=== PATIENT | female | born 1980 | race Caucasian/White ===

== ENCOUNTER 2018-09-27 13:10 | Emergency (ER) | payer OTHER, SELFPAY ==
[2018-09-27 13:21] VITALS: BP 137/78; PULSE 88; RESP 15; TEMP 36.7; O2SAT 98; BMI 39.3
--- NOTE | 2018-09-27 13:24 | ED.ABDPAIN ---
HPI - Abdominal Pain <JUAN Jeffrey - Last Filed: 09/27/18 21:47> General Chief Complaint: Abdominal Pain Stated Complaint: POSSIBLE APPENDIX ISSUES Time Seen by Provider: 09/27/18 13:24 Source: patient Mode of arrival: ambulatory Limitations: no limitations History of Present Illness HPI narrative: 38-year-old healthy female that is a nonsmoker here for complaint of right lower quadrant pain over the past couple of days. She denies any trauma to the area. No fevers no chills. She denies any urinary symptoms. Last bowel movement was earlier today. She states that her bowel movement was unremarkable. She denies any nausea or vomiting. Denies any stressors relievers of her discomfort. Pain has radiated to the right upper quadrant had a few times and then went back down to the lower quadrant. She has a history of hysterectomy and cholecystectomy. No other concerns or complaints at this time. Related Data Home Medications Medication Instructions Recorded Confirmed lorazepam [Ativan] #0 12/27/17 propranolol #0 12/27/17 sumatriptan succinate [Imitrex] #0 12/27/17 Allergies Allergy/AdvReac Type Severity Reaction Status Date / Time codeine Allergy Verified 09/27/18 13:21 Review of Systems <JUAN Jeffrey - Last Filed: 09/27/18 21:47> Constitutional Denies chills, Denies fever(s), Denies lethargy and Denies weakness Eyes Denies change in vision, Denies eye discharge, Denies irritation and Denies loss of vision ENT Ears, Nose, Mouth, and Throat: Denies change in voice, Denies neck pain and Denies sore throat Cardiovascular Denies chest pain, Denies irregular heart rhythm, Denies lightheadedness, Denies palpitations, Denies dyspnea, Denies dyspnea on exertion and Denies orthopnea Respiratory Denies cough, Denies dyspnea, Denies dyspnea on exertion and Denies wheezing Gastrointestinal Comments: Right lower quadrant pain Genitourinary Denies hematuria, Denies flank pain, Denies urinary incontinence and Denies urinary urgency Musculoskeletal Denies neck pain Integumentary/Breasts Denies pruritus, Denies erythema, Denies rash and Denies wounds Neurologic Denies confusion, Denies loss of vision and Denies weakness Psychiatric Denies anxiety, Denies confusion, Denies depression, Denies homicidal ideation and Denies suicidal ideation Endocrine Denies palpitations Allergic/Immunologic Denies wheezing Exam <JUAN Jeffrey - Last Filed: 09/27/18 21:47> Initial Vital Signs Initial Vital Signs: Vital Signs Temperature 98.1 F 09/27/18 13:21 Pulse Rate 88 09/27/18 13:21 Respiratory Rate 15 09/27/18 13:21 Blood Pressure 137/78 09/27/18 13:21 Pulse Oximetry 98 09/27/18 13:21 Const General: cooperative and well developed Nutritional Appearance: well nourished Orientation: alert, awake, oriented x3 and not confused HENPR Mouth: oral mucosae normal, oropharynx normal and moist mucous membranes Eyes Conjunctivae: conjunctivae normal Sclera: sclerae normal Pupils: PERRL EOM: EOM intact bilaterally Resp Effort & Inspection: normal respiratory effort, able to speak in complete sentences, no respiratory distress and no use of accessory muscles Auscultation: clear to auscultation bilaterally, no rales, no rhonchi and no wheezes Cardio Rate: regular rate Rhythm: regular rhythm Heart Sounds: no click, no gallops, no murmurs and no rubs GI Inspection: non-distended Palpation: soft, no hepatosplenomegaly, No guarding, No pulsatile mass and tender (Right lower quadrant) Auscultation: normal bowel sounds General: No CVA tenderness Skin General: no rashes or lesions noted, No jaundice and No petechiae Neuro General: alert, oriented x3, gait normal and no focal motor deficits Speech: speech normal <Alisha Bo DO - Last Filed: 09/30/18 07:18> Initial Vital Signs Initial Vital Signs: Vital Signs Temperature 98.1 F 09/27/18 13:21 Pulse Rate 88 09/27/18 13:21 Respiratory Rate 15 09/27/18 13:21 Blood Pressure 137/78 09/27/18 13:21 Pulse Oximetry 98 09/27/18 13:21 Course <JUAN Jeffrey - Last Filed: 09/27/18 21:47> Orders Ordered: Discontinued Medications Sodium Chloride (Normal Saline 0.9%) 1,000 mls @ 1,000 mls/hr IV BOLUS ONE Stop: 09/27/18 14:31 Last Infusion: 09/27/18 16:02 Dose: 0 mls/hr Admin: 09/27/18 14:52 Dose: 1,000 mls/hr Vital Signs - 8 hr 09/27/18 15:53 Pulse Rate 75 Blood Pressure [Left Arm] 125/70 Pulse Oximetry 99 <Alisha Bo DO - Last Filed: 09/30/18 07:18> Orders Ordered: Discontinued Medications Sodium Chloride (Normal Saline 0.9%) 1,000 mls @ 1,000 mls/hr IV BOLUS ONE Stop: 09/27/18 14:31 Last Infusion: 09/27/18 16:02 Dose: 0 mls/hr Admin: 09/27/18 14:52 Dose: 1,000 mls/hr Vital Signs - 8 hr 09/27/18 15:53 Pulse Rate 75 Blood Pressure [Left Arm] 125/70 Pulse Oximetry 99 MDM - Abdominal Pain <JUAN Jeffrey - Last Filed: 09/27/18 21:47> Lab Data Result diagrams: 09/27/18 13:45 09/27/18 13:45 Lab Results 09/27/18 09/27/18 Range/Units 13:45 13:45 WBC 5.9 (4.5-11.0) X10^3/uL RBC 4.88 (4.0-5.2) X10^6/uL Hgb 14.7 (12.0-16.0) g/dL Hct 42.2 (36-46) % MCV 86.5 (80-100) fL MCH 30.1 (26-34) PG MCHC 34.8 (30-36) % RDW 12.3 (11.6-14.8) % Plt Count 258 (150-400) X10^3/uL Neut % (Auto) 62.7 (50-75) % Lymph % (Auto) 29.2 (25-40) % Maury % (Auto) 6.6 (3-14) % Eos % (Auto) 0.8 L (2-4) % Baso % (Auto) 0.7 (0-2) % Neut # (Auto) 3700 (2668-0739) /uL Lymph # (Auto) 1700 (2828-1130) /uL Maury # (Auto) 400 (0-900) /uL Eos # (Auto) 0 (0-450) /uL Baso # (Auto) 0 (0-100) /uL Sodium 138 (137-145) mmol/L Potassium 4.1 (3.4-5.1) mmol/L Chloride 104 (98-107) mmol/L Carbon Dioxide 26 (22-32) mmol/L BUN 13 (7-17) mg/dL Creatinine 0.90 (0.52-1.04) mg/dL Estimated GFR > 60.0 (>60) mL/min BUN/Creatinine Ratio 14.4 (6-22) Glucose 96 (70-100) mg/dL Calcium 9.3 (8.4-10.2) mg/dL Total Bilirubin 0.4 (0.2-1.3) mg/dL AST 18 (14-36) IU/L ALT 24 (9-52) IU/L Alkaline Phosphatase 78 (38-126) U/L Total Protein 7.9 (6.3-8.2) g/dL Albumin 4.5 (3.5-5.0) g/dL Globulin 3.4 (1.7-4.1) g/dL Albumin/Globulin Ratio 1.3 (1.0-2.8) Lipase 54 (23-300) U/L Point of care testing: Urine Dip Bedside Urine Glucose Negative Bedside Urine Bilirubin - Negative Bedside Urine Ketone - Negative Urine Specific [place] 1.030 Bedside Urine Occult Blood - Negative Bedside Urine pH 5.5 Bedside Urine Protein - Negative Bedside Urine Urobilinogen - Negative Bedside Urine Nitrite - Negative Bedside Urine Leukocytes - Negative Esterase Imaging Data CT scan - abdomen: Radiologist's impression: Patient: Pattie Alejandro MR#: [id number] : 1980 Acct:[id number] Age/Sex: 38 / F Date of Service: 09/27/18 Loc: ED Accession Number: [id number] Procedure: CT abdomen pelvis w con Ordering Provider: Felice Tsang PROCEDURE: CT ABDOMEN PELVIS W CON INDICATIONS: Pain to right lower quadrant TECHNIQUE: After the administration of intravenous contrast, 5 mm thick sections acquired from the diaphragm to the symphysis. 5 mm coronal and sagittal reformats were acquired. For radiation dose reduction, the following was used: automated exposure control, adjustment of mA and/or kV according to patient size. COMPARISON: None. FINDINGS: Image quality: Excellent. ABDOMEN: Lung bases: Lung bases are clear. Heart size is normal. Solid organs: Liver is normal in size and enhancement. Gallbladder is surgically absent. Biliary system is non dilated. Pancreas enhances normally. Spleen is normal in size and enhancement. No adrenal nodules. Kidneys demonstrate normal size and enhancement, without hydronephrosis. 7 mm nonobstructing stone in the lower pole of the right kidney. Peritoneum and bowel: Bowel loops demonstrate normal wall thickness and caliber. No free fluid or air. The appendix is normal. Nodes and vessels: No retroperitoneal or mesenteric adenopathy by size criteria. Aorta and inferior vena cava are normal in size. Miscellaneous: Small fat containing umbilical hernia. PELVIS: Genitourinary: Bladder wall thickness is normal. Uterus is absent. Miscellaneous: No inguinal hernias or adenopathy. Bones: No suspicious bony lesions. No vertebral body compression fractures. IMPRESSION: 1. No acute disease process. 2. The appendix is normal. 3. No dilated loops of bowel. 4. No free fluid or air. 5. 7 mm nonobstructing right renal stone. 6. Postsurgical changes. Dictated by: Alissa Rendon MD, PhD on 09/27/2018 at 14:38 Approved by: Alissa Rendon MD, PhD on 09/27/2018 at 14:45 pelvic us: Radiologist's impression: ANGIE Hankins [id number] Ultrasound Report Signed Patient: Pattie Alejandro MR#: [id number] : 1980 Acct:[id number] Age/Sex: 38 / F Date of Service: 09/27/18 Loc: ED Accession Number: [id number] Procedure: US pelvic complete Ordering Provider: Felice Tsang PROCEDURE: US PELVIC COMPLETE INDICATIONS: Right lower quadrant pain TECHNIQUE: Real-time scanning was performed of the pelvic organs, with image documentation. Additional endovaginal scanning was necessary due to incomplete visualization of the adnexal and endometrial structures by transabdominal scanning. COMPARISON: [facility], CT, CT ABDOMEN PELVIS W CON, 09/27/2018, 14:10. FINDINGS: Transabdominal scanning: Limited scanning through the kidneys shows no hydronephrosis. No pathologic free abdominal or pelvic fluid. Endovaginal scanning: Uterus: Uterus is surgically absent.. Ovaries: Ovaries are not visualized and cannot be evaluated. No sonographic abnormalities identified in the expected region of the adnexa. IMPRESSION: 1. Uterus is surgically absent. 2. Ovaries are not identified and cannot be evaluated. No gross sonographic abnormalities identified in the expected region of the adnexa. Dictated by: Alissa Rendon MD, PhD on 09/27/2018 at 15:59 Approved by: Alissa Rendon MD, PhD on 09/27/2018 at 16:02 [facility] Narrative Medical decision making narrative: CBC and Chem panel were obtained were unremarkable. Lipase was negative. Urinalysis was negative for urinary tract infection. CT of the abdomen was obtained and was negative for any acute findings. There is a nonobstructing stone to the right kidney area. Patient was informed of this. Pelvic ultrasound was obtained and was negative for any acute findings. No emergent causes of her abdominal pain is found. Differential between viral illness or stomach wall pain [id number] Tylenol or Motrin as needed for any discomfort. Follow up with primary care provider. Return emergency room for any worsening symptoms. <Alisha Bo, DO - Last Filed: 09/30/18 07:18> Lab Data Lab Results 09/27/18 09/27/18 Range/Units 13:45 13:45 WBC 5.9 (4.5-11.0) X10^3/uL RBC 4.88 (4.0-5.2) X10^6/uL Hgb 14.7 (12.0-16.0) g/dL Hct 42.2 (36-46) % MCV 86.5 (80-100) fL MCH 30.1 (26-34) PG MCHC 34.8 (30-36) % RDW 12.3 (11.6-14.8) % Plt Count 258 (150-400) X10^3/uL Neut % (Auto) 62.7 (50-75) % Lymph % (Auto) 29.2 (25-40) % Maury % (Auto) 6.6 (3-14) % Eos % (Auto) 0.8 L (2-4) % Baso % (Auto) 0.7 (0-2) % Neut # (Auto) 3700 (2819-7233) /uL Lymph # (Auto) 1700 (0953[address]2029) /uL Maury # (Auto) 400 (0-900) /uL Eos # (Auto) 0 (0-450) /uL Baso # (Auto) 0 (0-100) /uL Sodium 138 (137-145) mmol/L Potassium 4.1 (3.4-5.1) mmol/L Chloride 104 (98-107) mmol/L Carbon Dioxide 26 (22-32) mmol/L BUN 13 (7-17) mg/dL Creatinine 0.90 (0.52-1.04) mg/dL Estimated GFR > 60.0 (>60) mL/min BUN/Creatinine Ratio 14.4 (6-22) Glucose 96 (70-100) mg/dL Calcium 9.3 (8.4-10.2) mg/dL Total Bilirubin 0.4 (0.2-1.3) mg/dL AST 18 (14-36) IU/L ALT 24 (9-52) IU/L Alkaline Phosphatase 78 (38-126) U/L Total Protein 7.9 (6.3-8.2) g/dL Albumin 4.5 (3.5-5.0) g/dL Globulin 3.4 (1.7-4.1) g/dL Albumin/Globulin Ratio 1.3 (1.0-2.8) Lipase 54 (23-300) U/L Point of care testing: Urine Dip Bedside Urine Glucose Negative Bedside Urine Bilirubin - Negative Bedside Urine Ketone - Negative Urine Specific [place] 1.030 Bedside Urine Occult Blood - Negative Bedside Urine pH 5.5 Bedside Urine Protein - Negative Bedside Urine Urobilinogen - Negative Bedside Urine Nitrite - Negative Bedside Urine Leukocytes - Negative Esterase Discharge Plan Departure Patient Disposition: Home Clinical Impression: Abdominal pain Discharge Date/Time: 09/27/18 16:26 Interventions: ED Discharge Assessment Last Done: 09/27/18 16:24 Instructions: DI for Abdominal Pain-Adult Activity Restrictions/Additional Instructions: Laboratory results and imaging today were unremarkable. No emergent causes of abdominal pain is found today. Abdominal pain may be due to abdominal wall pain or a viral illness. Use [id number] Tylenol or Motrin as needed for any discomfort. Plenty of fluids. Follow up with her primary care provider. Return emergency room for any worsening symptoms. Prescriptions: No Action propranolol 20 MG tablet Qty: 0 RF: 0 sumatriptan succinate [Imitrex] 50 MG tablet Qty: 0 RF: 0 lorazepam [Ativan] 0.5 MG tablet Qty: 0 RF: 0 Referrals: Colleen Ledesma ARNP [Primary Care Provider] - <Alisha Bo DO - Last Filed: 09/30/18 07:18> Cosign ED Attending Chanceature Attestation: I was immediately available in the department for consultation. Documentation has been reviewed. I agree with assessment and plan.
--- NOTE | 2018-09-27 13:33 | DI.CT.S_ITS ---
PROCEDURE: CT ABDOMEN PELVIS W CON INDICATIONS: Pain to right lower quadrant TECHNIQUE: After the administration of intravenous contrast, 5 mm thick sections acquired from the diaphragm to the symphysis. 5 mm coronal and sagittal reformats were acquired. For radiation dose reduction, the following was used: automated exposure control, adjustment of mA and/or kV according to patient size. COMPARISON: None. FINDINGS: Image quality: Excellent. ABDOMEN: Lung bases: Lung bases are clear. Heart size is normal. Solid organs: Liver is normal in size and enhancement. Gallbladder is surgically absent. Biliary system is non dilated. Pancreas enhances normally. Spleen is normal in size and enhancement. No adrenal nodules. Kidneys demonstrate normal size and enhancement, without hydronephrosis. 7 mm nonobstructing stone in the lower pole of the right kidney. Peritoneum and bowel: Bowel loops demonstrate normal wall thickness and caliber. No free fluid or air. The appendix is normal. Nodes and vessels: No retroperitoneal or mesenteric adenopathy by size criteria. Aorta and inferior vena cava are normal in size. Miscellaneous: Small fat containing umbilical hernia. PELVIS: Genitourinary: Bladder wall thickness is normal. Uterus is absent. Miscellaneous: No inguinal hernias or adenopathy. Bones: No suspicious bony lesions. No vertebral body compression fractures. IMPRESSION: 1. No acute disease process. 2. The appendix is normal. 3. No dilated loops of bowel. 4. No free fluid or air. 5. 7 mm nonobstructing right renal stone. 6. Postsurgical changes. Dictated by: Alissa Rendon MD, PhD on 09/27/2018 at 14:38 Approved by: Alissa Rendon MD, PhD on 09/27/2018 at 14:45
[2018-09-27 13:55] LABS: Add Manual Diff / Slide Review NO; Basophils Absolute Auto 0 /uL (0-100); Basophils Percent Auto 0.7 % (0-2); Eosinophils Absolute Auto 0 /uL (0-450); Eosinophils Percent Auto 0.8 % (2-4); Hematocrit 42.2 % (36-46); Hemoglobin 14.7 g/dL (12.0-16.0); Lymphocytes Absolute Auto 1700 /uL (1100-4500); Lymphocytes Percent Auto 29.2 % (25-40); Mean Corpuscular HGB Conc 34.8 % (30-36); Mean Corpuscular Hemoglobin 30.1 PG (26-34); Mean Corpuscular Volume 86.5 fL (80-100); Monocytes Absolute Auto 400 /uL (0-900); Monocytes Percent Auto 6.6 % (3-14); Neutrophils Absolute Auto 3700 /uL (1500-7000); Neutrophils Percent Auto 62.7 % (50-75); Platelet Count 258 X10^3/uL (150-400); Red Blood Cell Count 4.88 X10^6/uL (4.0-5.2); Red Cell Distribution Width 12.3 % (11.6-14.8); White Blood Cell Count 5.9 X10^3/uL (4.5-11.0)
[2018-09-27 14:05] LABS: Alanine Aminotransferase 24 IU/L (9-52); Albumin 4.5 g/dL (3.5-5.0); Albumin Globulin Ratio 1.3 (1.0-2.8); Alkaline Phosphatase 78 U/L (38-126); Aspartate Aminotransferase 18 IU/L (14-36); BUN Creatinine Ratio 14.4 (6-22); Bilirubin Total 0.4 mg/dL (0.2-1.3); Blood Urea Nitrogen 13 mg/dL (7-17); Calcium 9.3 mg/dL (8.4-10.2); Carbon Dioxide 26 mmol/L (22-32); Chloride 104 mmol/L (98-107); Estimated Glomerular Filt Rate > 60.0 mL/min (>60); Globulin 3.4 g/dL (1.7-4.1); Glucose 96 mg/dL (70-100); HEMOLYSIS < 15 (0-50); Lipase 54 U/L (23-300); Potassium 4.1 mmol/L (3.4-5.1); Sodium 138 mmol/L (137-145); Total Protein 7.9 g/dL (6.3-8.2)
[2018-09-27] MEDS: SODIUM CHLORIDE 0.9% 1,000 ML 1000 ML IV (14:52)
--- NOTE | 2018-09-27 15:03 | DI.US.S_ITS ---
PROCEDURE: US PELVIC COMPLETE INDICATIONS: Right lower quadrant pain TECHNIQUE: Real-time scanning was performed of the pelvic organs, with image documentation. Additional endovaginal scanning was necessary due to incomplete visualization of the adnexal and endometrial structures by transabdominal scanning. COMPARISON: [facility], CT, CT ABDOMEN PELVIS W CON, 09/27/2018, 14:10. FINDINGS: Transabdominal scanning: Limited scanning through the kidneys shows no hydronephrosis. No pathologic free abdominal or pelvic fluid. Endovaginal scanning: Uterus: Uterus is surgically absent.. Ovaries: Ovaries are not visualized and cannot be evaluated. No sonographic abnormalities identified in the expected region of the adnexa. IMPRESSION: 1. Uterus is surgically absent. 2. Ovaries are not identified and cannot be evaluated. No gross sonographic abnormalities identified in the expected region of the adnexa. Dictated by: Alissa Rendon MD, PhD on 09/27/2018 at 15:59 Approved by: Alissa Rendon MD, PhD on 09/27/2018 at 16:02
[2018-09-27 15:53] VITALS: BP 125/70; PULSE 75; O2SAT 99
--- NOTE | 2018-09-27 16:10 | ED_ITS ---
HPI - Abdominal Pain <JUAN Jeffrey - Last Filed: 09/27/18 21:47> General Chief Complaint: Abdominal Pain Stated Complaint: POSSIBLE APPENDIX ISSUES Time Seen by Provider: 09/27/18 13:24 Source: patient Mode of arrival: ambulatory Limitations: no limitations History of Present Illness HPI narrative: 38-year-old healthy female that is a nonsmoker here for complaint of right lower quadrant pain over the past couple of days. She denies any trauma to the area. No fevers no chills. She denies any urinary symptoms. Last bowel movement was earlier today. She states that her bowel movement was unremarkable. She denies any nausea or vomiting. Denies any stressors relievers of her discomfort. Pain has radiated to the right upper quadrant had a few times and then went back down to the lower quadrant. She has a history of hysterectomy and cholecystectomy. No other concerns or complaints at this time. Related Data Home Medications Medication Instructions Recorded Confirmed lorazepam [Ativan] #0 12/27/17 propranolol #0 12/27/17 sumatriptan succinate [Imitrex] #0 12/27/17 Allergies Allergy/AdvReac Type Severity Reaction Status Date / Time codeine Allergy Verified 09/27/18 13:21 Review of Systems <JUAN Jeffrey - Last Filed: 09/27/18 21:47> Constitutional Denies chills, Denies fever(s), Denies lethargy and Denies weakness Eyes Denies change in vision, Denies eye discharge, Denies irritation and Denies loss of vision ENT Ears, Nose, Mouth, and Throat: Denies change in voice, Denies neck pain and Denies sore throat Cardiovascular Denies chest pain, Denies irregular heart rhythm, Denies lightheadedness, Denies palpitations, Denies dyspnea, Denies dyspnea on exertion and Denies orthopnea Respiratory Denies cough, Denies dyspnea, Denies dyspnea on exertion and Denies wheezing Gastrointestinal Comments: Right lower quadrant pain Genitourinary Denies hematuria, Denies flank pain, Denies urinary incontinence and Denies urinary urgency Musculoskeletal Denies neck pain Integumentary/Breasts Denies pruritus, Denies erythema, Denies rash and Denies wounds Neurologic Denies confusion, Denies loss of vision and Denies weakness Psychiatric Denies anxiety, Denies confusion, Denies depression, Denies homicidal ideation and Denies suicidal ideation Endocrine Denies palpitations Allergic/Immunologic Denies wheezing Exam <JUAN Jeffrey - Last Filed: 09/27/18 21:47> Initial Vital Signs Initial Vital Signs: Vital Signs Temperature 98.1 F 09/27/18 13:21 Pulse Rate 88 09/27/18 13:21 Respiratory Rate 15 09/27/18 13:21 Blood Pressure 137/78 09/27/18 13:21 Pulse Oximetry 98 09/27/18 13:21 Const General: cooperative and well developed Nutritional Appearance: well nourished Orientation: alert, awake, oriented x3 and not confused HENMD Mouth: oral mucosae normal, oropharynx normal and moist mucous membranes Eyes Conjunctivae: conjunctivae normal Sclera: sclerae normal Pupils: PERRL EOM: EOM intact bilaterally Resp Effort & Inspection: normal respiratory effort, able to speak in complete sentences, no respiratory distress and no use of accessory muscles Auscultation: clear to auscultation bilaterally, no rales, no rhonchi and no wheezes Cardio Rate: regular rate Rhythm: regular rhythm Heart Sounds: no click, no gallops, no murmurs and no rubs GI Inspection: non-distended Palpation: soft, no hepatosplenomegaly, No guarding, No pulsatile mass and tender (Right lower quadrant) Auscultation: normal bowel sounds General: No CVA tenderness Skin General: no rashes or lesions noted, No jaundice and No petechiae Neuro General: alert, oriented x3, gait normal and no focal motor deficits Speech: speech normal <Alisha Bo DO - Last Filed: 09/30/18 07:18> Initial Vital Signs Initial Vital Signs: Vital Signs Temperature 98.1 F 09/27/18 13:21 Pulse Rate 88 09/27/18 13:21 Respiratory Rate 15 09/27/18 13:21 Blood Pressure 137/78 09/27/18 13:21 Pulse Oximetry 98 09/27/18 13:21 Course <JUAN Jeffrey - Last Filed: 09/27/18 21:47> Orders Ordered: Discontinued Medications Sodium Chloride (Normal Saline 0.9%) 1,000 mls @ 1,000 mls/hr IV BOLUS ONE Stop: 09/27/18 14:31 Last Infusion: 09/27/18 16:02 Dose: 0 mls/hr Admin: 09/27/18 14:52 Dose: 1,000 mls/hr Vital Signs - 8 hr 09/27/18 15:53 Pulse Rate 75 Blood Pressure [Left Arm] 125/70 Pulse Oximetry 99 <Alisha Bo DO - Last Filed: 09/30/18 07:18> Orders Ordered: Discontinued Medications Sodium Chloride (Normal Saline 0.9%) 1,000 mls @ 1,000 mls/hr IV BOLUS ONE Stop: 09/27/18 14:31 Last Infusion: 09/27/18 16:02 Dose: 0 mls/hr Admin: 09/27/18 14:52 Dose: 1,000 mls/hr Vital Signs - 8 hr 09/27/18 15:53 Pulse Rate 75 Blood Pressure [Left Arm] 125/70 Pulse Oximetry 99 MDM - Abdominal Pain <JUAN Jeffrey - Last Filed: 09/27/18 21:47> Lab Data Result diagrams: 09/27/18 13:45 09/27/18 13:45 Lab Results 09/27/18 09/27/18 Range/Units 13:45 13:45 WBC 5.9 (4.5-11.0) X10^3/uL RBC 4.88 (4.0-5.2) X10^6/uL Hgb 14.7 (12.0-16.0) g/dL Hct 42.2 (36-46) % MCV 86.5 (80-100) fL MCH 30.1 (26-34) PG MCHC 34.8 (30-36) % RDW 12.3 (11.6-14.8) % Plt Count 258 (150-400) X10^3/uL Neut % (Auto) 62.7 (50-75) % Lymph % (Auto) 29.2 (25-40) % [place] % (Auto) 6.6 (3-14) % Eos % (Auto) 0.8 L (2-4) % Baso % (Auto) 0.7 (0-2) % Neut # (Auto) 3700 (0902-4376) /uL Lymph # (Auto) 1700 (7877-4544) /uL [place] # (Auto) 400 (0-900) /uL Eos # (Auto) 0 (0-450) /uL Baso # (Auto) 0 (0-100) /uL Sodium 138 (137-145) mmol/L Potassium 4.1 (3.4-5.1) mmol/L Chloride 104 (98-107) mmol/L Carbon Dioxide 26 (22-32) mmol/L BUN 13 (7-17) mg/dL Creatinine 0.90 (0.52-1.04) mg/dL Estimated GFR > 60.0 (>60) mL/min BUN/Creatinine Ratio 14.4 (6-22) Glucose 96 (70-100) mg/dL Calcium 9.3 (8.4-10.2) mg/dL Total Bilirubin 0.4 (0.2-1.3) mg/dL AST 18 (14-36) IU/L ALT 24 (9-52) IU/L Alkaline Phosphatase 78 (38-126) U/L Total Protein 7.9 (6.3-8.2) g/dL Albumin 4.5 (3.5-5.0) g/dL Globulin 3.4 (1.7-4.1) g/dL Albumin/Globulin Ratio 1.3 (1.0-2.8) Lipase 54 (23-300) U/L Point of care testing: Urine Dip Bedside Urine Glucose Negative Bedside Urine Bilirubin - Negative Bedside Urine Ketone - Negative Urine Specific [place] 1.030 Bedside Urine Occult Blood - Negative Bedside Urine pH 5.5 Bedside Urine Protein - Negative Bedside Urine Urobilinogen - Negative Bedside Urine Nitrite - Negative Bedside Urine Leukocytes - Negative Esterase Imaging Data CT scan - abdomen: Radiologist's impression: Patient: Pattie Alejandro MR#: [id number] : 1980 Acct:[id number] Age/Sex: 38 / F Date of Service: 09/27/18 Loc: ED Accession Number: [id number] Procedure: CT abdomen pelvis w con Ordering Provider: Felice Tsang PROCEDURE: CT ABDOMEN PELVIS W CON INDICATIONS: Pain to right lower quadrant TECHNIQUE: After the administration of intravenous contrast, 5 mm thick sections acquired from the diaphragm to the symphysis. 5 mm coronal and sagittal reformats were acquired. For radiation dose reduction, the following was used: automated exposure control, adjustment of mA and/or kV according to patient size. COMPARISON: None. FINDINGS: Image quality: Excellent. ABDOMEN: Lung bases: Lung bases are clear. Heart size is normal. Solid organs: Liver is normal in size and enhancement. Gallbladder is surgically absent. Biliary system is non dilated. Pancreas enhances normally. Spleen is normal in size and enhancement. No adrenal nodules. Kidneys demonstrate normal size and enhancement, without hydronephrosis. 7 mm nonobstructing stone in the lower pole of the right kidney. Peritoneum and bowel: Bowel loops demonstrate normal wall thickness and caliber. No free fluid or air. The appendix is normal. Nodes and vessels: No retroperitoneal or mesenteric adenopathy by size criteria. Aorta and inferior vena cava are normal in size. Miscellaneous: Small fat containing umbilical hernia. PELVIS: Genitourinary: Bladder wall thickness is normal. Uterus is absent. Miscellaneous: No inguinal hernias or adenopathy. Bones: No suspicious bony lesions. No vertebral body compression fractures. IMPRESSION: 1. No acute disease process. 2. The appendix is normal. 3. No dilated loops of bowel. 4. No free fluid or air. 5. 7 mm nonobstructing right renal stone. 6. Postsurgical changes. Dictated by: Alissa Rendon MD, PhD on 09/27/2018 at 14:38 Approved by: Alissa Rendon MD, PhD on 09/27/2018 at 14:45 pelvic us: Radiologist's impression: ANGIE Hankins [id number] Ultrasound Report Signed Patient: Pattie Alejandro MR#: [id number] : 1980 Acct:[id number] Age/Sex: 38 / F Date of Service: 09/27/18 Loc: ED Accession Number: [id number] Procedure: US pelvic complete Ordering Provider: Felice Tsang PROCEDURE: US PELVIC COMPLETE INDICATIONS: Right lower quadrant pain TECHNIQUE: Real-time scanning was performed of the pelvic organs, with image documentation. Additional endovaginal scanning was necessary due to incomplete visualization of the adnexal and endometrial structures by transabdominal scanning. COMPARISON: [facility], CT, CT ABDOMEN PELVIS W CON, 09/27/2018, 14:10. FINDINGS: Transabdominal scanning: Limited scanning through the kidneys shows no hydronephrosis. No pathologic free abdominal or pelvic fluid. Endovaginal scanning: Uterus: Uterus is surgically absent.. Ovaries: Ovaries are not visualized and cannot be evaluated. No sonographic abnormalities identified in the expected region of the adnexa. IMPRESSION: 1. Uterus is surgically absent. 2. Ovaries are not identified and cannot be evaluated. No gross sonographic abnormalities identified in the expected region of the adnexa. Dictated by: Alissa Rendon MD, PhD on 09/27/2018 at 15:59 Approved by: Alissa Rendon MD, PhD on 09/27/2018 at 16:02 [facility] Narrative Medical decision making narrative: CBC and Chem panel were obtained were unremarkable. Lipase was negative. Urinalysis was negative for urinary tract infection. CT of the abdomen was obtained and was negative for any acute findings. There is a nonobstructing stone to the right kidney area. Patient was informed of this. Pelvic ultrasound was obtained and was negative for any acute findings. No emergent causes of her abdominal pain is found. Differential between viral illness or stomach wall pain [id number] Tylenol or Motrin as needed for any discomfort. Follow up with primary care provider. Return emergency room for any worsening symptoms. <Alisha Bo, DO - Last Filed: 09/30/18 07:18> Lab Data Lab Results 09/27/18 09/27/18 Range/Units 13:45 13:45 WBC 5.9 (4.5-11.0) X10^3/uL RBC 4.88 (4.0-5.2) X10^6/uL Hgb 14.7 (12.0-16.0) g/dL Hct 42.2 (36-46) % MCV 86.5 (80-100) fL MCH 30.1 (26-34) PG MCHC 34.8 (30-36) % RDW 12.3 (11.6-14.8) % Plt Count 258 (150-400) X10^3/uL Neut % (Auto) 62.7 (50-75) % Lymph % (Auto) 29.2 (25-40) % [place] % (Auto) 6.6 (3-14) % Eos % (Auto) 0.8 L (2-4) % Baso % (Auto) 0.7 (0-2) % Neut # (Auto) 3700 (8649-2408) /uL Lymph # (Auto) 1700 (7027-2357) /uL [place] # (Auto) 400 (0-900) /uL Eos # (Auto) 0 (0-450) /uL Baso # (Auto) 0 (0-100) /uL Sodium 138 (137-145) mmol/L Potassium 4.1 (3.4-5.1) mmol/L Chloride 104 (98-107) mmol/L Carbon Dioxide 26 (22-32) mmol/L BUN 13 (7-17) mg/dL Creatinine 0.90 (0.52-1.04) mg/dL Estimated GFR > 60.0 (>60) mL/min BUN/Creatinine Ratio 14.4 (6-22) Glucose 96 (70-100) mg/dL Calcium 9.3 (8.4-10.2) mg/dL Total Bilirubin 0.4 (0.2-1.3) mg/dL AST 18 (14-36) IU/L ALT 24 (9-52) IU/L Alkaline Phosphatase 78 (38-126) U/L Total Protein 7.9 (6.3-8.2) g/dL Albumin 4.5 (3.5-5.0) g/dL Globulin 3.4 (1.7-4.1) g/dL Albumin/Globulin Ratio 1.3 (1.0-2.8) Lipase 54 (23-300) U/L Point of care testing: Urine Dip Bedside Urine Glucose Negative Bedside Urine Bilirubin - Negative Bedside Urine Ketone - Negative Urine Specific [place] 1.030 Bedside Urine Occult Blood - Negative Bedside Urine pH 5.5 Bedside Urine Protein - Negative Bedside Urine Urobilinogen - Negative Bedside Urine Nitrite - Negative Bedside Urine Leukocytes - Negative Esterase Discharge Plan Departure Patient Disposition: Home Clinical Impression: Abdominal pain Discharge Date/Time: 09/27/18 16:26 Interventions: ED Discharge Assessment Last Done: 09/27/18 16:24 Instructions: DI for Abdominal Pain-Adult Activity Restrictions/Additional Instructions: Laboratory results and imaging today were unremarkable. No emergent causes of abdominal pain is found today. Abdominal pain may be due to abdominal wall pain or a viral illness. Use [id number] Tylenol or Motrin as needed for any discomfort. Plenty of fluids. Follow up with her primary care provider. Return emergency room for any worsening symptoms. Prescriptions: No Action propranolol 20 MG tablet Qty: 0 RF: 0 sumatriptan succinate [Imitrex] 50 MG tablet Qty: 0 RF: 0 lorazepam [Ativan] 0.5 MG tablet Qty: 0 RF: 0 Referrals: Colleen Ledesma ARNP [Primary Care Provider] - <Alisha Bo DO - Last Filed: 09/30/18 07:18> Cosign ED Attending Chanceature Attestation: I was immediately available in the department for consultation. Documentation has been reviewed. I agree with assessment and plan.
== END 2018-09-27 16:26 | disposition home or self-care (01) ==
PROVIDERS: Emergency Provider Nurse Practitioner Family; PCP Nurse Practitioner Family
DX: R10.9 Unspecified abdominal pain (principal)
CPT/HCPCS: 36591; 74177; 76856; 80053; 81003; 83690; 85025; 96360; 99283; 99285; Q9967

== ENCOUNTER → 2019-02-26 15:42 | Outpatient (CLI) | payer OTHER, SELFPAY ==
[2019-02-26 16:36] LABS: Alanine Aminotransferase 11 IU/L (9-52); Albumin 4.1 g/dL (3.5-5.0); Albumin Globulin Ratio 1.4 (1.0-2.8); Alkaline Phosphatase 81 U/L (38-126); Aspartate Aminotransferase 19 IU/L (14-36); Bilirubin Total 0.2 mg/dL (0.2-1.3); Blood Urea Nitrogen 16 mg/dL (7-17); Calcium 9.4 mg/dL (8.4-10.2); Carbon Dioxide 30 mmol/L (22-32); Chloride 104 mmol/L (98-107); Cholesterol 194 mg/dL (140-199); Estimated Glomerular Filt Rate > 60.0 mL/min (>60); Globulin 2.9 g/dL (1.7-4.1); Glucose 89 mg/dL (70-100); HDL Cholesterol 38 mg/dL (40-60); HEMOLYSIS < 15 (0-50); LDL Cholesterol Calculated 82 mg/dL (<100); Potassium 3.6 mmol/L (3.4-5.1); Sodium 140 mmol/L (137-145); Triglycerides 368 mg/dL (35-150)
== END ==
PROVIDERS: PCP Nurse Practitioner Family; Visit Provider Student in an Organized Health Care Education/Training Program
DX: E78.2 Mixed hyperlipidemia (principal); Z13.29 Encounter for screening for other suspected endocrine disorder; Z13.228 Encounter for screening for other metabolic disorders
CPT/HCPCS: 36415; 80053; 80061; 84443

== ENCOUNTER 2019-06-27 16:24 | Emergency (ER) | payer OTHER, SELFPAY ==
[2019-06-27 16:36] VITALS: BP 114/58; PULSE 91; RESP 16; TEMP 36.6; O2SAT 98; BMI 39.3
--- NOTE | 2019-06-27 16:47 | ED.GENADULT ---
HPI - General Adult General Chief complaint: Abdominal Pain Stated complaint: back again for kidney issues Time Seen by Provider: 06/27/19 16:24 Source: patient Mode of arrival: Ambulatory Limitations: no limitations History of Present Illness HPI narrative: 39-year-old female here for evaluation of right flank pain lower abdominal pain and dysuria. Patient was seen here back in September for right upper quadrant pain. At that time she had a CT scan. She was told that she had a kidney stone on the right side. She states that since September she has had occasional right flank pain. States the abdominal pain she was seen for that time has resolved. The pain this brought her in today is a new pain. States it has become more consistent recently. She does have a follow-up with Urology next week. She also describes urinary frequency and urgency. No vomiting. Has had her gallbladder removed. Has had a hysterectomy. No trauma. Related Data Home Medications Medication Instructions Recorded Confirmed lorazepam [Ativan] #0 12/27/17 propranolol #0 12/27/17 sumatriptan succinate [Imitrex] #0 12/27/17 Allergies Allergy/AdvReac Type Severity Reaction Status Date / Time codeine Allergy Verified 09/27/18 13:21 Review of Systems Constitutional Constitutional: Denies fever(s) and Denies headache(s) ENT Ears, Nose, Mouth, and Throat: Denies headache(s) Cardiovascular Cardiovascular: Denies chest pain and Denies dyspnea Respiratory Respiratory: Denies dyspnea Gastrointestinal Gastrointestinal: Denies abdominal pain, Denies change in stool character, Denies nausea and Denies vomiting Genitourinary Genitourinary: Reports dysuria, Reports urinary hesitancy, Reports urinary urgency and Denies vaginal discharge Musculoskeletal Comments: Right flank pain Integumentary/Breasts Skin/Breast: Denies lesions and Denies rash Neurologic Neurologic: Denies behavioral changes and Denies headache(s) Psychiatric Psychiatric: Denies behavioral changes Hematologic/Lymphatic Hematologic/Lymphatic: Denies easy bleeding and Denies easy bruising Patient History Medical/Surgical History Surgical History History of cholecystectomy (Acute) History of hysterectomy (Acute) Social History Smoking Status: Never smoker Family/Social History Social History (Reviewed 06/27/19 @ 16:50 by ALEKSANDRA Warner Smoking Status: Never smoker alcohol intake frequency: 0-2 drinks per day Substance Use Type: does not use Exam Initial Vital Signs Initial Vital Signs: Vital Signs Temperature 97.9 F 06/27/19 16:36 Pulse Rate 91 H 06/27/19 16:36 Respiratory Rate 16 06/27/19 16:36 Blood Pressure 114/58 L 06/27/19 16:36 Pulse Oximetry 98 06/27/19 16:36 Const General: cooperative, comfortable and well developed Orientation: alert, awake and oriented x3 Resp Effort & Inspection: normal respiratory effort Cardio Rate: regular rate GI Inspection: non-distended Palpation: soft and No firm Back/Spine/Pelvis Other: Paraspinal tenderness right lumbar region. States this is different than the pain that brought her into the emergency department Skin Lesions: no lesions Rashes: no rashes Neuro General: alert, awake and oriented x3 Cognition: normal cognition Speech: speech normal Extrem General: normal to inspection and capillary refill normal Psych Appearance: grossly normal and well kempt Course Orders Ordered: ED Orders 06/27/19 16:37 Urine Microscopic Stat 06/27/19 16:46 CT kidney ureter bladder (KUB) Stat 06/27/19 16:50 Basic Metabolic Panel Stat Vital Signs Vital signs: Vital Signs - 8 hr 06/27/19 16:36 Temperature 97.9 F Pulse Rate 91 H Respiratory Rate 16 Blood Pressure 114/58 L Pulse Oximetry 98 Medical Decision Making Medical Records Medical records reviewed: Yes I reviewed the patient's medical records. Lab Data Lab results reviewed: Yes I reviewed the patient's lab results. Result diagrams: 06/27/19 16:50 Labs: Lab Results 06/27/19 06/27/19 Range/Units 16:37 16:50 Sodium 140 (137-145) mmol/L Potassium 3.8 (3.4-5.1) mmol/L Chloride 104 (98-107) mmol/L Carbon Dioxide 27 (22-32) mmol/L BUN 11 (7-17) mg/dL Creatinine 0.70 (0.52-1.04) mg/dL Estimated GFR > 60.0 (>60) mL/min BUN/Creatinine Ratio 15.7 (6-22) Glucose 102 H (70-100) mg/dL Calcium 9.3 (8.4-10.2) mg/dL Urine RBC None seen (0-5/HPF) Urine WBC None seen (0-5/HPF) Ur Squamous Epith Cells 5-10 /hpf H (0-5/HPF) Urine Bacteria None seen (None) Ur Culture Indicated? Cult not indicated Urine Dip Bedside Urine Glucose Negative Bedside Urine Bilirubin - Negative Bedside Urine Ketone - Negative Urine Specific [place] 1.025 Bedside Urine Occult Blood - Negative Bedside Urine pH 6.0 Bedside Urine Protein +/- 15 Bedside Urine Urobilinogen +/- 1mg Bedside Urine Nitrite - Negative Bedside Urine Leukocytes - Negative Esterase Point of care testing: Urine Dip Bedside Urine Glucose Negative Bedside Urine Bilirubin - Negative Bedside Urine Ketone - Negative Urine Specific [place] 1.025 Bedside Urine Occult Blood - Negative Bedside Urine pH 6.0 Bedside Urine Protein +/- 15 Bedside Urine Urobilinogen +/- 1mg Bedside Urine Nitrite - Negative Bedside Urine Leukocytes - Negative Esterase Imaging Data CT scan - abdomen: Radiologist's impression: [address] [id number] [address] Scan Report Signed Patient: Pattie Alejandro TMR#: [id number] : 1980Acct:[id number] Age/Sex: 39 / FDate of Service: 06/27/19 Loc: ED Accession Number: [id number] Procedure: CT kidney ureter bladder (KUB) Ordering Provider: Christ Preston D.O. PROCEDURE: CT KIDNEY URETER BLADDER (KUB) INDICATIONS: right flank pain hx of stone TECHNIQUE: Noncontrast 5 mm thick sections acquired from the diaphragms to the symphysis. 5 mm thick coronal and sagittal reformats were then performed. For radiation dose reduction, the following was used: automated exposure control, adjustment of mA and/or kV according to patient size. COMPARISON: [facility], US, US PELVIC COMPLETE, 09/27/2018, 15:46. [facility], CT, CT ABDOMEN PELVIS W CON, 09/27/2018, 14:10. FINDINGS: Image quality: Excellent. Lung bases: Lung bases are clear. Heart size is normal. Urinary system: There is a 6 mm nonobstructing right-sided kidney stone seen inferiorly. No additional kidney stones are seen. No ureteral stones are seen. Both kidneys are normal in size. Both ureters appear non-dilated throughout their expected courses. Bladder wall thickness is normal; no calcified bladder stones. Other solid organs: Liver is normal in size. Gallbladder has been removed. Pancreas is normal in contours. Spleen is normal in size. No adrenal nodules. Peritoneum and bowel: Unenhanced bowel loops demonstrate normal wall thickness and caliber. No free fluid or air. Diverticulosis is seen, without findings of active diverticulitis. Incidental note is made of a normal-appearing appendix. Nodes and vessels: No retroperitoneal or mesenteric adenopathy by size criteria. Aorta and inferior vena cava are normal in caliber. 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 Abdominal wall: No ventral hernias. Pelvis: No free pelvic fluid. No inguinal hernias or adenopathy. This patient is status post hysterectomy. No adnexal masses are seen. Bones: No suspicious bony lesions. No vertebral body compression fractures. Mild levoconvex scoliotic curvature is noted. 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 Dictated by: Kameron Salas M.D. on 06/27/2019 at 16:29 Approved by: Kameron Salas M.D. on 06/27/2019 at 16:32 MDM Narrative Medical decision making narrative: CT scan does show the right-sided kidney stone however has normal creatinine and no signs of urinary tract infection. I did inform the patient that I have low suspicion that this stone is what is causing her discomfort. It has been off and on for almost a year now. The CT scan does not show any other acute pathology. She has an appoint with Urology on Saturday. She was given a copy of her labs and also her CT report to take that appointment. No indication for antibiotics. She was informed she could take Tylenol and ibuprofen for any discomfort. She expressed understanding and agreement with plan. Discharge Plan Departure Patient Disposition: Home Clinical Impression: Dysuria Back pain Qualifiers: Back pain location: low back pain Chronicity: chronic Back pain laterality: right Sciatica presence: without sciatica Qualified Code(s): M54.5 - Low back pain Instructions: DI for Dysuria -- Adult Activity Restrictions/Additional Instructions: Continue all of your medications as directed. Keep all of your scheduled medical appointments especially with the urologist on Saturday. Return to the emergency department for any new symptoms Prescriptions: No Action propranolol 20 MG tablet Qty: 0 RF: 0 sumatriptan succinate [Imitrex] 50 MG tablet Qty: 0 RF: 0 lorazepam [Ativan] 0.5 MG tablet Qty: 0 RF: 0 Referrals: Kathia Barone PA-C [Primary Care Provider] -
[2019-06-27 16:58] LABS: Bacteria Urine None Seen; RBC Urine None Seen (0-5/HPF); WBC Urine None Seen (0-5/HPF)
[2019-06-27 17:09] LABS: Culture Indicated Urine Cult Not Indicated; Squamous Epithelial Cell Urine 5-10 /HPF (0-5/HPF)
[2019-06-27 17:16] LABS: BUN Creatinine Ratio 15.7 (6-22); Blood Urea Nitrogen 11 mg/dL (7-17); Calcium 9.3 mg/dL (8.4-10.2); Carbon Dioxide 27 mmol/L (22-32); Chloride 104 mmol/L (98-107); Estimated Glomerular Filt Rate > 60.0 mL/min (>60); Glucose 102 mg/dL (70-100); HEMOLYSIS < 15 (0-50); Potassium 3.8 mmol/L (3.4-5.1); Sodium 140 mmol/L (137-145)
== END 2019-06-27 17:56 | disposition home or self-care (01) ==
PROVIDERS: Emergency Provider Emergency Medicine; PCP Student in an Organized Health Care Education/Training Program
DX: R30.0 Dysuria (principal); M54.5 Low back pain; Z87.442 Personal history of urinary calculi
CPT/HCPCS: 36415; 74176; 80048; 81003; 81015; 99282; 99284

== ENCOUNTER → 2019-12-10 15:55 | Outpatient (CLI) | payer OTHER, SELFPAY ==
[2019-12-10 17:00] LABS: Influenza A - CEPHEID Flu A NEGATIVE (NEGATIVE); Influenza B - CEPHEID Flu B NEGATIVE (NEGATIVE)
[2019-12-12 09:10] LABS: COVID19 Sendout Not Detected (Not Detected)
== END ==
PROVIDERS: PCP Student in an Organized Health Care Education/Training Program; Visit Provider Family Medicine
DX: R05 Cough (principal)
CPT/HCPCS: 87502; 87635

== ENCOUNTER → 2020-07-19 17:06 | Outpatient (CLI) | payer OTHER, SELFPAY ==
[2020-07-21 10:58] LABS: Var-Zoster Immunity Screen <135 index (Immune >165)
== END ==
PROVIDERS: PCP Student in an Organized Health Care Education/Training Program; Referring Provider Student in an Organized Health Care Education/Training Program; Visit Provider Student in an Organized Health Care Education/Training Program
DX: Z01.84 Encounter for antibody response examination (principal)
CPT/HCPCS: 36415; 86787

== ENCOUNTER → 2020-09-15 10:06 | Outpatient (CLI) | payer OTHER, SELFPAY ==
--- NOTE | 2020-09-15 | DI.CT.S_ITS ---
PROCEDURE: CT KIDNEY URETER BLADDER (KUB) INDICATIONS: UNSPECIFIED ABDOMINAL PAIN TECHNIQUE: Noncontrast 5 mm thick sections acquired from the diaphragms to the symphysis. 5 mm thick coronal and sagittal reformats were then performed. For radiation dose reduction, the following was used: automated exposure control, adjustment of mA and/or kV according to patient size. COMPARISON: [facility], CT, CT KIDNEY URETER BLADDER (KUB), 06/27/2019, 16:49. FINDINGS: Image quality: Excellent. Lung bases: Lung bases are clear. Heart size is normal. Urinary system: Both kidneys are normal in size. Nonobstructing 3 mm right lower pole intrarenal calculus. No hydronephrosis or perinephric fat stranding. Both ureters appear non-dilated throughout their expected courses. The urinary bladder is decompressed. There are no calcified bladder stones. Other solid organs: Liver is normal in size. Gallbladder is surgically absent . Pancreas is normal in contours. Spleen is normal in size. No adrenal nodules. Peritoneum and bowel: Unenhanced bowel loops demonstrate normal wall thickness and caliber. No free fluid or air. Nodes and vessels: No retroperitoneal or mesenteric adenopathy by size criteria. Aorta and inferior vena cava are normal in caliber. There is a duplicated IVC. Abdominal wall: No ventral hernias. Pelvis: No free pelvic fluid. No inguinal hernias or adenopathy. The uterus is surgically absent. Bones: No suspicious bony lesions. No vertebral body compression fractures. IMPRESSION: 1. 3 mm nonobstructing right lower pole intrarenal calculus. 2. Post cholecystectomy and hysterectomy. Dictated by: Rosemary Rosales M.D. on 09/15/2020 at 11:36 Approved by: Rosemary Rosales M.D. on 09/15/2020 at 11:40
== END ==
PROVIDERS: PCP Student in an Organized Health Care Education/Training Program; Referring Provider Student in an Organized Health Care Education/Training Program; Visit Provider Student in an Organized Health Care Education/Training Program
DX: R10.9 Unspecified abdominal pain (principal); N20.0 Calculus of kidney; Z87.442 Personal history of urinary calculi; Z90.710 Acquired absence of both cervix and uterus; Z90.49 Acquired absence of other specified parts of digestive tract
CPT/HCPCS: 74176

== ENCOUNTER → 2020-09-20 14:25 | Outpatient (CLI) | payer OTHER, SELFPAY ==
--- NOTE | 2020-09-20 | DI.RAD.S_ITS ---
PROCEDURE: XR KUB INDICATIONS: KIDNEY STONE TECHNIQUE: One view of the abdomen acquired. COMPARISON: [facility], CT, CT KIDNEY URETER BLADDER (KUB), 09/15/2020, 10:16. FINDINGS: Surgical changes and devices: Right upper quadrant cholecystectomy clips. Bowel: Bowel gas pattern is normal. Soft tissues: No new suspicious abdominal calcifications. Small 2 mm calcification lower 3rd right renal collecting system area. Visualized solid organ contours appear normal in size. Bones: No suspicious bony lesions. IMPRESSION: Small rounded calcification seen inferior aspect of the right kidney area, which appears to correlate with the finding from CT scanning 09/05/20. No new calculus seen. Prior cholecystectomy. Dictated by: Alejandro Bauer M.D. on 09/20/2020 at 14:58 Approved by: Alejandro Bauer M.D. on 09/20/2020 at 15:06
== END ==
PROVIDERS: PCP Student in an Organized Health Care Education/Training Program; Referring Provider Student in an Organized Health Care Education/Training Program; Visit Provider Student in an Organized Health Care Education/Training Program
DX: N20.0 Calculus of kidney (principal); Z90.49 Acquired absence of other specified parts of digestive tract
CPT/HCPCS: 74018

== ENCOUNTER → 2020-10-20 19:33 | Outpatient (ROUT) | payer OTHER, SELFPAY ==
[2020-10-20 20:25] LABS: Vitamin D 25 Hydroxy (D3) 32.7 ng/mL (30.0-100.0)
== END ==
PROVIDERS: PCP Student in an Organized Health Care Education/Training Program; Visit Provider Student in an Organized Health Care Education/Training Program
DX: E55.9 Vitamin D deficiency, unspecified (principal)
CPT/HCPCS: 82306

== ENCOUNTER → 2020-11-10 08:22 | Outpatient (CLI) | payer OTHER, SELFPAY ==
--- NOTE | 2020-11-10 | DI.MRI.S_ITS ---
PROCEDURE: MR HEAD/BRAIN WO/W CON INDICATIONS: NONINTRACTABLE EPISODIC HEADACHE TECHNIQUE: Noncontrast axial T1 spin echo, axial T2 fast spin echo, sagittal and axial FLAIR, coronal T2 fast spin echo, axial gradient echo, axial diffusion and ADC through the brain. After the administration of contrast, axial and coronal 3D VIBE or T1 spin echo with fat saturation through the brain. COMPARISON: None. FINDINGS: Image quality: Excellent. CSF Spaces: Basal cisterns are patent. No extra-axial fluid collections. Ventricles are normal in size and shape. Brain: No midline shift. No intracranial bleeds or masses. No abnormal intracranial enhancement. The brainstem appears normal. Diffusion-weighted images demonstrate no acute ischemic insults. No chronic ischemic insults. Normal intravascular flow voids are present. Skull and face: Calvarial marrow is normal in signal. Orbits appear normal. Sinuses: Sinuses and mastoids appear clear. IMPRESSION: 1. No acute process. No explanation for headache. 2. No recent infarct. Dictated by: Yariel Christy M.D. on 11/10/2020 at 9:06 Approved by: Yariel Christy M.D. on 11/10/2020 at 9:07
== END ==
PROVIDERS: PCP Student in an Organized Health Care Education/Training Program; Referring Provider Student in an Organized Health Care Education/Training Program; Visit Provider Student in an Organized Health Care Education/Training Program
DX: R51.9 Headache, unspecified (principal)
CPT/HCPCS: 70553

== ENCOUNTER → 2021-05-06 11:03 | Outpatient (CLI) | payer OTHER, SELFPAY ==
--- NOTE | 2021-05-06 11:05 | DI.MRI.S_ITS ---
PROCEDURE: MR ELBOW LT W CON INDICATIONS: Lateral epicondylitis, left elbow TECHNIQUE: Noncontrast coronal proton density fast spin echo and T2 fast spin echo with fat saturation, axial and sagittal T1 spin echo and T2 fast spin echo with fat saturation through the elbow. COMPARISON: None. FINDINGS: Image quality: Excellent. Lateral structures: The lateral ulnar collateral ligament and radial collateral ligament both appear thickened with intrasubstance T2 hyperintense signal. The overlying common extensor tendon also appears thickened with heterogeneously increased T2 signal. Medial structures: The ulnar collateral ligament appears intact. The overlying common flexor tendon appears normal. The ulnar nerve appears normal in size and signal within the cubital tunnel. Anterior structures: The biceps and brachialis tendons both appear intact as they insert onto the proximal radius and ulna, respectively. No bicipitoradial bursal fluid. The median and radial neurovascular bundles appear normal; no focal muscle atrophy to suggest nerve impingement. Posterior structures: The conjoint triceps tendon from the long and lateral heads appears intact. The medial head of the triceps tendon also appears normal, with direct muscle insertion onto the olecranon. No olecranon bursal fluid. Bone and cartilage: No bone marrow contusions or fractures. No osteochondral injuries. IMPRESSION: 1. Finding is consistent with lateral epicondylitis with sprain/low-grade intrasubstance partial-thickness tear involving lateral collateral ligaments and tendinosis and low to moderate grade partial-thickness tear involving overlying common extensor tendon origin. 2. Medial elbow tendons and ligaments are intact. 3. No marrow signal abnormality. No fracture or dislocation. No significant joint effusion. Dictated by: Dillon Concepcion M.D. on 05/08/2021 at 8:21 Approved by: Dillon Concepcion M.D. on 05/08/2021 at 8:24
== END ==
PROVIDERS: PCP Student in an Organized Health Care Education/Training Program; Referring Provider Orthopaedic Surgery Foot and Ankle Surgery; Visit Provider Orthopaedic Surgery Foot and Ankle Surgery
DX: M77.12 Lateral epicondylitis, left elbow (principal)
CPT/HCPCS: 73221

== ENCOUNTER → 2022-07-28 12:18 | Outpatient (CLI) | payer OTHER, SELFPAY ==
[2022-07-28 14:08] LABS: COVID-19 CEPHEID 4-PLEX PCR Negative (Negative); Influenza A - CEPHEID Flu A NEGATIVE (NEGATIVE); Influenza B - CEPHEID Flu B NEGATIVE (NEGATIVE); Respiratory Syncytial Virus Negative (Negative)
== END ==
PROVIDERS: PCP Student in an Organized Health Care Education/Training Program; Visit Provider Physician Assistant
DX: R50.9 Fever, unspecified (principal); J34.89 Other specified disorders of nose and nasal sinuses; H66.90 Otitis media, unspecified, unspecified ear
CPT/HCPCS: 0241U

== ENCOUNTER 2022-10-30 12:28 | Day surgery (SDC) | payer OTHER, SELFPAY ==
--- NOTE | 2022-10-30 | PATH_ITS ---
[facility] Accession Number: [id number] No. of containers..02 Tissue . 01 Material submitted: . PART A: ileum - TERMINAL ILEUM BIOPSY PART B: colon - RANDOM COLON BIOPSIES . 01 Diagnosis: A. Terminal Ileum, Biopsy: Ileal mucosa with no diagnostic abnormality. Negative for active inflammation, granulomas, dysplasia or malignancy. . B. Random Colon, Biopsies: Colonic mucosa with no diagnostic abnormality. Negative for active, chronic, and microscopic colitis. Negative for dysplasia and malignancy. . MRV 11/05/2022 1226 Local . 01 Electronically signed: . Nicola Alex MD, PhD, Pathologist NPI- [id number] . 01 Gross description: . Part A: TERMINAL ILEUM BIOPSY: Received in formalin are 4 fragment(s) of ding, soft tissue measuring 0.1 x 0.1 x 0.1 cm to 0.3 x 0.2 x 0.2 cm submitted entirely in 1 cassette(s) Part B: RANDOM COLON BIOPSIES: Received in formalin are 2 fragment(s) of ding, soft tissue measuring 0.2 x 0.2 x 0.2 cm to 0.3 x 0.3 x 0.2 cm submitted entirely in 1 cassette(s) /JUAN ALBERTO 10/31/2022 1913 Local . 01 Pathologist provided ICD-10: R19.7 . 01 CPT . 247543, [id number] Specimen Comment: A courtesy copy of this report has been sent to [phone] Performed at: 01 [facility] [address] [place] [address] [facility] [place], [place], [place] [id number] MD Derian Lebron MD Phone: [phone]
[2022-10-30] MEDS: LACTATED RINGERS 1,000 ML 200 ML IV (12:48)
[2022-10-30 12:51] VITALS: BP 118/80; PULSE 97; RESP 17; TEMP 36.3; O2SAT 100; BMI 35.3
--- NOTE | 2022-10-30 14:16 | PM.PREOP ---
Pre-operative Note Interval Note History & Physical reviewed/Exam performed by Physician: Yes Changes to H&P: No
[2022-10-30 15:06] VITALS: BP 106/61; PULSE 91; RESP 12; TEMP 36.5; O2SAT 97
--- NOTE | 2022-10-30 15:08 | PM.OP.COLON ---
Operative Date/Time/Diagnoses Date of procedure: 10/30/22 Time of procedure: 15:08 Pre-op diagnosis: Chronic diarrhea Post-op diagnosis: same Procedure & Clinicians Study performed: Colonoscopy Same procedure as scheduled: Yes Indications: 42-year-old woman with chronic diarrhea here for colonoscopy Surgeon: Álvaro Saenz Procedure Notes Procedure in detail: The history and physical was performed/updated and the patient is ASA class is 2. The procedure was discussed in detail with the patient. Potential risks complications including infection, bleeding, missed diagnosis, perforation, need for surgery, and were explained. Their questions were answered and informed consent was obtained. Patient was brought to the procedure room and placed standard monitoring equipment. The patient's vital signs were monitored continuously throughout the entire procedure. Prior to starting time-out was performed. The patient was placed in the left lateral recumbent position. Procedural sedation was administered by anesthesia. Examination began with a thorough inspection of the perianal area there was no evidence of fissures, fistulae, external hemorrhoids or cutaneous malignancy. The colonoscopy scope was then placed into the anal canal and was advanced to the cecum, which was identified by the ileocecal valve, the appendiceal orifice and the confluence of the taenia. The scope was then slowly withdrawn examining colon thoroughly in all directions, irrigating it of any residual stool. The ileocecal valve was intubated and the terminal ileum was examined. There was mild inflammation within the terminal ileum and multiple biopsies were performed with forceps. Scope was then pulled back into the colon which was examined and was unremarkable. No masses or polyps within the colon. Random colonic biopsies were taken with forceps. Retroflexion within the rectum demonstrated grade 1-2 internal hemorrhoids. The patient tolerated the procedure well. They will be discharged once criteria are met. The prep was of good/excellent quality. The withdrawl time was 7 minutes. Specimen(s): other (Terminal ileum, random colonic biopsies) Impression: Ileitis Post-procedure Recommendations: High fiber diet and Prescription for (Pentasa) Disposition: same day surgery
[2022-10-30 15:11] VITALS: BP 100/69; PULSE 82; RESP 17; O2SAT 99
[2022-10-30 15:17] VITALS: PULSE 82; RESP 12; O2SAT 98
[2022-10-30 15:18] VITALS: BP 102/61
[2022-10-30 15:23] VITALS: BP 107/68; PULSE 89; RESP 16; TEMP 36.5; O2SAT 98
== END 2022-10-30 15:34 | disposition home or self-care (01) ==
PROVIDERS: PCP Student in an Organized Health Care Education/Training Program; Referring Provider Surgery; Visit Provider Surgery
PROC: 0DJD8ZZ Inspection of Lower Intestinal Tract, Via Natural or Artificial Opening Endoscopic (ICD-10-PCS; CPT 45378; principal; 2022-10-30 13:30)
DX: K52.9 Noninfective gastroenteritis and colitis, unspecified (principal); K64.0 First degree hemorrhoids
CPT/HCPCS: 45380; J2405; J2704; J3010

== ENCOUNTER → 2023-05-28 14:35 | Outpatient (CLI) | payer OTHER, SELFPAY ==
--- NOTE | 2023-05-28 | DI.CT.S_ITS ---
PROCEDURE: CT KIDNEY URETER BLADDER (KUB) INDICATIONS: RIGHT FLANK PAIN TECHNIQUE: Axial sections were acquired from the lung bases to the pubic symphysis. Coronal and sagittal reformats were performed. For radiation dose reduction, the following was used: automated exposure control, adjustment of mA and/or kV according to patient size. COMPARISON: [facility], US, US ABDOMEN COMPLETE, 05/28/2023, 15:07. [facility], RG, CT ABDOMEN/PELVIS WITHOUT CONTRAST, 05/03/2021, 19:41. Outside Facility, RG, CT KUB, 08/28/2019, 14:43. [facility], CT, CT KIDNEY URETER BLADDER (KUB), 06/27/2019, 16:49. [facility], CT, CT KIDNEY URETER BLADDER (KUB), 09/15/2020, 10:16. FINDINGS: Image quality: Excellent. Lung bases: Unremarkable. Heart: No significant findings. URINARY: Right Kidney: No stones or hydronephrosis. The 3 mm right lower improved pole stone seen on 05/03/2021 is no longer visualized. Right Ureter: No hydroureter. Left Kidney: No stones or hydronephrosis. Left Ureter: No hydroureter. Bladder: Normal wall thickness. Mild stranding around the urinary bladder. No stones. ABDOMEN: Liver: Unremarkable. Gallbladder: Surgically absent. Biliary ducts: Unremarkable. Pancreas: Unremarkable. Spleen: Unremarkable. Adrenal Glands: Unremarkable. Stomach and Bowel: Stomach, small bowel loops, and colon are normal in caliber. Moderate amount of stool in distal colon. Peritoneum: No abnormal intraperitoneal fluid. No free air. Ventral Wall: No hernia. Abdominal Nodes: No enlarged retroperitoneal or mesenteric lymph nodes. Vessels: Aorta and inferior vena cava are normal in size. PELVIS: Pelvic Organs: Prostate is enlarged. Pelvic Nodes: Unremarkable. Miscellaneous: No inguinal hernias are seen. Bones: Unremarkable. IMPRESSION: 1. No renal stones or hydronephrosis. 2. Mild stranding around bladder suggesting cystitis. Please correlate with urinalysis. 3. Enlargement of prostate. Dictated by: Michael Gorman M.D. on 05/28/2023 at 16:39 Approved by: Michael Gorman M.D. on 05/29/2023 at 8:05
--- NOTE | 2023-05-28 | DI.US.S_ITS ---
PROCEDURE: US ABDOMEN COMPLETE INDICATIONS: RIGHT FLANK PAIN TECHNIQUE: Real-time scanning was performed of the abdominal and retroperitoneal organs, with image documentation. COMPARISON: None. FINDINGS: Liver: Liver is normal in size and homogeneous in echotexture. Gallbladder: Surgically absent Biliary ducts: Intrahepatic bile ducts are non-dilated. Extrahepatic bile duct caliber measures 8 mm. Normal is 6-7 mm or less in diameter, or 10 mm or less post-cholecystectomy. Pancreas: Visualized portions of the pancreas are sonographically normal. The pancreatic tail is not well seen. Spleen: Spleen is normal in size and homogeneous in echotexture. Kidneys: Kidneys are normal in size and echotexture. Right kidney measures 10.5 cm long; left kidney measures 11.6 cm long. No hydronephrosis or nephrolithiasis. No solid masses. Aorta: Visualized aorta is normal in caliber at less than 3 cm. Iliacs: Proximal common iliac arteries are normal in caliber at less than 2.5 cm. IVC: Intrahepatic inferior vena cava is patent. Miscellaneous: No free abdominal fluid. IMPRESSION: 1. No cause for patient's symptoms are identified. 2. The kidneys are normal in appearance without hydronephrosis or stones. 3. The gallbladder is surgically absent. Dictated by: Wilton Hidalgo M.D. on 05/28/2023 at 16:45 Approved by: Wilton Hidalgo M.D. on 05/28/2023 at 16:46
== END ==
PROVIDERS: PCP Student in an Organized Health Care Education/Training Program; Referring Provider Physician Assistant; Visit Provider Physician Assistant
DX: R10.9 Unspecified abdominal pain (principal); Z90.49 Acquired absence of other specified parts of digestive tract
CPT/HCPCS: 74176; 76700